=== PATIENT | female | born 1950 | race Hispanic/Latino ===

== ENCOUNTER 2018-01-26 07:37 | Observation (INO) | payer MEDICARE ==
[2018-01-23 09:37] LABS: BASOPHILS % 0.5 % (0.0-1.0); EOSINOPHILS # (AUTO) 0.2 (0.0-0.4); EOSINOPHILS % 1.9 % (0.0-6.0); HEMATOCRIT 41.1 % (34.2-44.1); HEMOGLOBIN 13.6 g/dL (12.0-16.0); LYMPHOCYTES # (AUTO) 2.5 (1.0-3.2); LYMPHOCYTES % 28.6 % (18.0-39.1); MEAN CORPUSCULAR HEMOGLOBIN 33.3 pg (28-32); MEAN CORPUSCULAR HGB CONC 33.1 g/dL (31-35); MEAN CORPUSCULAR VOLUME 100.5 fL (81-99); MONOCYTES # (AUTO) 0.7 (0.2-0.8); MONOCYTES % 7.5 % (4.4-11.3); NEUTROPHILS # (AUTO) 5.3 (2.1-6.9); NEUTROPHILS % 61.2 % (38.7-80.0); PLATELET COUNT 274 x10e3/uL (140-360); RED BLOOD COUNT 4.09 x10e6/uL (3.6-5.1); RED CELL DISTRIBUTION WIDTH 12.3 % (11.7-14.4)
[2018-01-23 09:54] LABS: ANION GAP 14.9 mmol/L (8-16); BLOOD UREA NITROGEN 16 mg/dL (7-26); BUN/CREATININE RATIO 22 (6-25); CALCIUM 9.6 mg/dL (8.4-10.2); CARBON DIOXIDE 28 mmol/L (22-29); CHLORIDE 101 mmol/L (98-107); CREATININE, SERUM 0.72 mg/dL (0.57-1.11); EST GLOMERULAR FILTRATION RATE > 60 ML/MIN (60-); GLUCOSE 133 mg/dL (74-118); POTASSIUM 3.9 mmol/L (3.5-5.1); SODIUM 140 mmol/L (136-145)
--- NOTE | 2018-01-23 10:14 | Diagnostic Imaging Report ---
PROCEDURE:CHEST 2 VIEWS COMPARISON:None. INDICATIONS:PREOPERATIVE CHEST XRAY FOR LEFT KNEE SURGERY FINDINGS:The heart and lungs are normal. No infiltrates, nodules or pleural effusions. Focal eventration anteriorly of the right hemidiaphragm. Calcification within the aortic knob. Mild degenerative changes of the spine. Compression deformity of the L1 vertebral body. CONCLUSION:No acute abnormality. Tello Tim D.O. Dictated by: Tello Tim D.O. on 01/23/2018 at 10:20 Electronically approved by: Tello Tim D.O. on 01/23/2018 at 10:20
[~2018-01-26 07:37] MED LIST: AMLODIPINE BESYL5 MG PO; ATORVASTATIN CA20 MG PO; ESCITALOPRAM OX10 MG PO; LEVOTHYROXINE75 MCG PO; LOSARTAN-HCTZ1 EAC2 PO; METFORMIN HCL500 MG PO; NAPROXEN250 MG PO; QUETIAPINE FUMA25 MG PO; ROPIVACAINE 246.25 MG, EPINEPHRINE HCL 1:1000 0.5 MG, CLONIDINE HCL 0.08 MG, KETOROLAC ... INJ ONE
[2018-01-26] MEDS ORDERED: DEXAMETHASONE SOD PHOS 10 MG/1 ML VIAL ONE (08:00)
[2018-01-26] MEDS ORDERED: GABAPENTIN 300 MG CAP ONE (08:00)
[2018-01-26] MEDS ORDERED: CEFAZOLIN SOD 2 GM/D5W 50ML 50 ML IV ONE (08:00)
[2018-01-26] MEDS ORDERED: CELECOXIB 200 MG CAP ONE (08:36)
[2018-01-26] MEDS ORDERED: TRANEXAMIC ACID 1,000 MG/10 ML ML ONE (09:31)
[2018-01-26] MEDS ORDERED: BACITRACIN 50,000 UNIT VIAL ONE (09:31)
[2018-01-26] MEDS: SODIUM CHLORIDE 0.9% 1000ML 1,000 ML IV SCH ×2 (11:41→20:57)
[2018-01-26] MEDS ORDERED: ONDANSETRON HCL INJ 2 MG/ML VIAL IV PRN (11:45)
[2018-01-26] MEDS ORDERED: HYDROCODONE/APAP 5MG-325MG TAB PO PRN (11:45)
[2018-01-26] MEDS ORDERED: DOCUSATE SODIUM 100 MG CAP PO PRN (11:45)
[2018-01-26] MEDS ORDERED: PROMETHAZINE HCL (IM) 25 MG/ML VIAL IM PRN (11:45)
[2018-01-26] MEDS ORDERED: HYDROCODONE/APAP 7.5MG-325MG 1 EA TAB PO PRN (11:45)
[2018-01-26] MEDS ORDERED: DIPHENHYDRAMINE HCL INJ 50 MG/ML VIAL IM/IV PRN (11:45)
[2018-01-26] MEDS ORDERED: KETOROLAC TROMETHAMINE 30 MG/ML VIAL IV PRN (11:45)
[2018-01-26] MEDS ORDERED: ACETAMINOPHEN 650 MG SUPP PR PRN (11:45)
[2018-01-26] MEDS: ACETAMINOPHEN 1000 MG/100 ML IV SCH ×3 (12:00→23:59)
--- NOTE | 2018-01-26 12:35 | Diagnostic Imaging Report ---
PROCEDURE: X-RAY LEFT KNEE, ONE OR TWO VIEWS COMPARISON: None. INDICATIONS:POST-OP OF LEFT KNEE FINDINGS: See conclusion. CONCLUSION: Status post total left knee replacement with surrounding soft tissue swelling, air and rizwan consistent with recent surgery. No acute fractures. Dictated by: Scott Araujo M.D. on 01/26/2018 at 12:41 Electronically approved by: Scott Araujo M.D. on 01/26/2018 at 12:41
--- NOTE | 2018-01-26 12:44 | Operative Report ---
DATE OF PROCEDURE: January 26, 2018 WIRE WHEELER: Damian Marmolejo PA-C The patient was brought to the operating room for induction of anesthesia. Throughout this case, my PA's assistance was necessary for retraction of soft tissue and positioning of the extremity. This allows for efficient and technically successful execution of the operation and is considered medically necessary. PREOPERATIVE DIAGNOSIS: Osteoarthritis left knee. POSTOPERATIVE DIAGNOSIS: Osteoarthritis left knee. PROCEDURE: Left total knee arthroplasty *added complexity secondary to BMI of 42. INDICATIONS: The patient is a 67-year-old lady who has end-stage arthritis in her left knee. She has failed conservative management and wishes to proceed with a left total knee replacement. The risks and benefits of the procedure have been explained. The added risks due to her BMI of 42 have been explained. She states she understands and wishes to proceed. DESCRIPTION OF PROCEDURE: The patient was brought to the operating room and placed under general anesthetic. She received a regional block, prophylactic antibiotics and tranexamic acid in the holding area. Her left lower extremity was prepped and draped in a sterile manner. Added time and personnel were needed to accommodate her challenging size. The left lower extremity was prepped and draped in a sterile manner. A preoperative time out was performed. The extremity was exsanguinated, and a proximal tourniquet was inflated to 350 mmHg. An anterior approach with a medial parapatellar arthrotomy was performed. A slightly more extensile approach than typical was performed due to her size. Clear synovial fluid was removed from the joint. Soft-tissue releases were performed to bring the knee up into flexion with the patella everted. Meniscal remnants and marginal osteophytes were removed. The cruciate ligaments were sacrificed. A Andre and Nephew Lo II posterior stabilized knee system was used throughout the case. An extramedullary cutting guide was used to resect the proximal tibia. The tibial baseplate was a size number 3. The central fin punch was impacted, and attention was directed towards the distal femur. An intramedullary cutting guide was used to resect the distal femur in 6 degrees of valgus and rotation referencing off of a combination of landmarks including [place]'s line, the epicondylar axis and the posterior condyles. The femoral component was a size number 4. The anterior and posterior cuts were made. Trial reductions were performed. A 9 mm ultracongruent tibial insert provided optimal soft-tissue balancing in flexion and extension. The patella was then resurfaced with a 29 mm x 9 mm patellar button. The thickness was checked before and after resurfacing and was right at 21 mm. The patellar tracking was noted to be concentric. The trial implants were then all removed. A 100 mL premixed pericapsular injection was placed into the surrounding soft tissue. The knee was thoroughly irrigated with a shower-tip pulsatile lavage. The components were cemented into place using a single mix of Palacos cement pre-loaded with antibiotics. Care was taken to remove all extravasated cement. The wound was further irrigated with the pulsatile lavage while the cement cured. The arthrotomy was then closed with interrupted number 1 Ethibond. The knee was put through flexion and extension to ensure a secure closure. The skin was carefully closed with subcuticular Vicryl and rizwan. A sterile Aquacel bandage was applied. The patient was extubated and transported to the recovery room in stable condition. Blood loss was minimal. All needle and sponge counts were correct. Job#: [id number] ESME
[2018-01-26] MEDS ORDERED: CEFAZOLIN SOD 1 GM/D5W 50ML 50 ML IV SCH (14:00)
[2018-01-26 16:00] VITALS: BP 126/61
[2018-01-26 16:19] VITALS: BP 126/61
[2018-01-26] MEDS ORDERED: CELECOXIB 100 MG CAP PO SCH (17:00)
[2018-01-26] MEDS: CEFAZOLIN SOD 1 GM VIAL IV SCH (17:15)
[2018-01-26] MEDS: ASPIRIN 325 MG TAB PO SCH (17:15)
[2018-01-26] MEDS: CELECOXIB 200 MG CAP PO SCH (17:15)
[2018-01-26] MEDS ORDERED: SEVOFLURANE INHAL SOLN 250 ML PEN BTL ONE (17:33)
[2018-01-26] MEDS ORDERED: PROPOFOL IV EMULSION 10 MG/ML 20 ML VIAL ONE (17:33)
[2018-01-26] MEDS ORDERED: LIDOCAINE HCL 2% LOCAL INJ 5 ML SDV VIAL INJ ONE (17:33)
[2018-01-26] MEDS ORDERED: ONDANSETRON HCL INJ 2 MG/ML VIAL ONE (17:33)
[2018-01-26] MEDS ORDERED: DEXAMETHASONE SOD PHOS INJ 4 MG/ML VIAL ONE (17:33)
[2018-01-26] MEDS ORDERED: EPHEDRINE SULFATE INJ 50 MG/10 ML SYR ONE (17:33)
[2018-01-26] MEDS ORDERED: ROPIVACAINE 0.5% 5 MG/ML 30 ML SDV ONE (17:40)
[2018-01-26] MEDS ORDERED: LIDOCAINE 2%/ EPINEPHRINE 20ML MDV ONE (17:40)
[2018-01-26] MEDS ORDERED: MIDAZOLAM HCL 2 MG/2 ML VIAL ONE (17:42)
[2018-01-26] MEDS ORDERED: FENTANYL CITRATE/PF 100MCG/2 ML INJ ONE (17:42)
[2018-01-26] MEDS ORDERED: DEXTROSE 50% SYRINGE 50 ML IV PRN (18:00)
[2018-01-26] MEDS ORDERED: vascepa PO (18:12)
[2018-01-26 20:00] VITALS: BP 131/62
[2018-01-26] MEDS: INSULIN REGULAR, HUMAN 100 UNIT/1 ML 3ML VIAL SQ SCH (20:56)
[2018-01-26] MEDS ORDERED: ATORVASTATIN 40 MG TAB PO SCH (21:00)
[2018-01-26] MEDS ORDERED: ATORVASTATIN 20 MG TAB PO SCH (21:00)
[2018-01-26] MEDS ORDERED: ZOLPIDEM TARTRATE 5 MG TAB PO PRN (21:00)
[2018-01-26] MEDS ORDERED: QUETIAPINE FUMARATE 25 MG TAB PO SCH (21:00)
[2018-01-27 00:45] VITALS: BP 115/57
[2018-01-27] MEDS: CEFAZOLIN SOD 1 GM VIAL IV SCH ×2 (01:22→10:14)
[2018-01-27 04:00] VITALS: BP 126/59
[2018-01-27] MEDS: ACETAMINOPHEN 1000 MG/100 ML IV SCH (05:35)
[2018-01-27 05:36] LABS: HEMATOCRIT 34.6 % (34.2-44.1); HEMOGLOBIN 11.6 g/dL (12.0-16.0)
[2018-01-27] MEDS ORDERED: LEVOTHYROXINE SODIUM 75 MCG TAB PO SCH (06:00)
[2018-01-27] MEDS: INSULIN REGULAR, HUMAN 100 UNIT/1 ML 3ML VIAL SQ SCH ×3 (07:30→16:18)
[2018-01-27 07:39] VITALS: BP 125/61
[2018-01-27 08:00] VITALS: BP 125/61
[2018-01-27] MEDS: CELECOXIB 200 MG CAP PO SCH ×2 (08:00→17:36)
[2018-01-27] MEDS ORDERED: METFORMIN HCL 500 MG TAB PO SCH (08:00)
[2018-01-27] MEDS: SODIUM CHLORIDE 0.9% 1000ML 1,000 ML IV SCH (08:00)
[2018-01-27] MEDS: ASPIRIN 325 MG TAB PO SCH ×2 (08:00→17:36)
[2018-01-27] MEDS ORDERED: AMLODIPINE BESYLATE 5 MG TAB PO SCH (09:00)
[2018-01-27] MEDS ORDERED: ESCITALOPRAM OXALATE 10 MG TAB PO SCH (09:00)
[2018-01-27] MEDS ORDERED: ACETAMINOPHEN 1000 MG/100 ML IV PRN (11:45)
[2018-01-27 12:01] VITALS: BP 135/63
[2018-01-27] MEDS ORDERED: ASPIRIN325 MG PO (13:14)
[2018-01-27 16:00] VITALS: BP 142/64
== END 2018-01-27 17:50 | disposition home health service (06) ==
LOC: OR 07:37 → PACU V 11:30 → MED/SURG 15:18
PROVIDERS: ADMIT Specialist; ATTEND Specialist
DX: M17.12 Unilateral primary osteoarthritis, left knee (principal); Z68.41 Body mass index [BMI] 40.0-44.9, adult; I10 Essential (primary) hypertension; E03.9 Hypothyroidism, unspecified; E11.9 Type 2 diabetes mellitus without complications; E78.5 Hyperlipidemia, unspecified; F32.9 Major depressive disorder, single episode, unspecified; Z83.3 Family history of diabetes mellitus; Z82.49 Family history of ischemic heart disease and other diseases of the circulatory system; E66.01 Morbid (severe) obesity due to excess calories
CPT/HCPCS: 27447; 36415 ×3; 71046; 73560; 80048; 82948 ×2; 85014; 85018; 85025; 86850; 86900; 86920; 93005; 97116; 97161; 97530; G0378 ×2; G8978; G8979; J0171; J0690 ×2; J1100 ×2; J1885; J2001 ×2; J2250; J2405; J2795; J7030 ×2; C1713

== ENCOUNTER → 2018-04-08 | Outpatient (RCR) | payer MEDICARE ==
[~2018-04-08] MED LIST changes: +ASPIRIN325 MG PO; -ROPIVACAINE 246.25 MG, EPINEPHRINE HCL 1:1000 0.5 MG, CLONIDINE HCL 0.08 MG, KETOROLAC ... INJ ONE; +vascepa PO
== END ==
LOC: PT 03-11 08:09
PROVIDERS: ATTEND Specialist
DX: Z96.652 Presence of left artificial knee joint (principal); Z47.1 Aftercare following joint replacement surgery; M17.0 Bilateral primary osteoarthritis of knee
CPT/HCPCS: 97110 ×8; 97139; 97140 ×2; 97162; G8978 ×2; G8979 ×2

== ENCOUNTER → 2018-05-08 | Outpatient (RCR) | payer MEDICARE | LOC: PT 04-10 09:02 | PROVIDERS: ATTEND Specialist | DX: Z96.652 Presence of left artificial knee joint (principal); Z47.1 Aftercare following joint replacement surgery; M17.0 Bilateral primary osteoarthritis of knee; M25.662 Stiffness of left knee, not elsewhere classified; M62.81 Muscle weakness (generalized); R26.9 Unspecified abnormalities of gait and mobility | CPT/HCPCS: 97110 ×12; 97140; G8978; G8979 ==

== ENCOUNTER 2018-05-27 09:00 | Outpatient (RCR) | payer MEDICARE | END 2018-06-08 | LOC: PT 09:00 | PROVIDERS: ATTEND Specialist | DX: Z96.652 Presence of left artificial knee joint (principal); Z47.1 Aftercare following joint replacement surgery; M17.0 Bilateral primary osteoarthritis of knee; M25.662 Stiffness of left knee, not elsewhere classified; M62.81 Muscle weakness (generalized); R26.9 Unspecified abnormalities of gait and mobility | CPT/HCPCS: 97110 ×8; 97140 ×2; G8979; G8980 ==

== ENCOUNTER 2019-03-08 07:45 | Observation (INO) | payer MEDICARE ==
[2019-03-05 12:59] LABS: BASOPHILS % 0.4 % (0.0-1.0); EOSINOPHILS # (AUTO) 0.3 (0.0-0.4); EOSINOPHILS % 3.5 % (0.0-6.0); HEMATOCRIT 36.9 % (34.2-44.1); HEMOGLOBIN 12.6 g/dL (12.0-16.0); LYMPHOCYTES # (AUTO) 1.9 (1.0-3.2); LYMPHOCYTES % 24.5 % (18.0-39.1); MEAN CORPUSCULAR HEMOGLOBIN 33.2 pg (28-32); MEAN CORPUSCULAR HGB CONC 34.1 g/dL (31-35); MEAN CORPUSCULAR VOLUME 97.4 fL (81-99); MONOCYTES # (AUTO) 0.5 (0.2-0.8); MONOCYTES % 6.3 % (4.4-11.3); NEUTROPHILS # (AUTO) 5.1 (2.1-6.9); NEUTROPHILS % 64.9 % (38.7-80.0); PLATELET COUNT 289 x10e3/uL (140-360); RED BLOOD COUNT 3.79 x10e6/uL (3.6-5.1); RED CELL DISTRIBUTION WIDTH 13.1 % (11.7-14.4)
[2019-03-05 13:16] LABS: ANION GAP 11.6 mmol/L (8-16); BLOOD UREA NITROGEN 13 mg/dL (7-26); BUN/CREATININE RATIO 18 (6-25); CALCIUM 9.3 mg/dL (8.4-10.2); CARBON DIOXIDE 29 mmol/L (22-29); CHLORIDE 102 mmol/L (98-107); CREATININE, SERUM 0.74 mg/dL (0.57-1.11); EST GLOMERULAR FILTRATION RATE > 60 ML/MIN (60-); GLUCOSE 234 mg/dL (74-118); POTASSIUM 3.6 mmol/L (3.5-5.1); SODIUM 139 mmol/L (136-145)
--- NOTE | 2019-03-05 13:18 | Diagnostic Imaging Report ---
EXAMINATION: CHEST 2 VIEWS INDICATION: Preop for knee surgery ^PREOP ^[id number] ^[id number] COMPARISON: 01/23/2018 FINDINGS: TUBES and LINES: None. LUNGS: Lungs are well inflated. Lungs are clear. There is no evidence of pneumonia or pulmonary edema. PLEURA: No pleural effusion or pneumothorax. HEART AND MEDIASTINUM: The cardiomediastinal silhouette is unremarkable. BONES AND SOFT TISSUES: No acute osseous lesion. Soft tissues are unremarkable. UPPER ABDOMEN: No free air under the diaphragm. IMPRESSION: No acute thoracic abnormality. Signed by: Dr. Vince Marie M.D. on 03/05/2019 1:15 PM
[~2019-03-08] VITALS: Ht 165.1 cm; Wt 94.8 kg
[~2019-03-08 07:45] MED LIST changes: +BACITRACIN 50,000 UNIT VIAL ONE; +LOSARTAN POTAS100 MG PO; +ROPIVACAINE 246.25 MG, EPINEPHRINE HCL 1:1000 1ML 0.5 MG, CLONIDINE HCL 0.08 MG, KETORO... INJ ONE; +SODIUM CHLORIDE 0.9% 500ML 500 ML ONE; +TRANEXAMIC ACID 1,000 MG/10 ML ML ONE; +VANCOMYCIN HCL 1,000 MG ONE
[2019-03-08] MEDS ORDERED: CELECOXIB 200 MG CAP ONE (07:58)
[2019-03-08] MEDS ORDERED: GABAPENTIN 300 MG CAP ONE (07:58)
[2019-03-08] MEDS ORDERED: DEXAMETHASONE SOD PHOS 10 MG/1 ML VIAL ONE (07:58)
[2019-03-08] MEDS ORDERED: CEFAZOLIN SOD 1 GM/NS 50ML 100 ML IV ONE (07:59)
[2019-03-08] MEDS ORDERED: HYDROCODONE/APAP 7.5MG-325MG 1 EA TAB PO PRN (10:45)
[2019-03-08] MEDS ORDERED: KETOROLAC TROMETHAMINE 30 MG/ML VIAL IV PRN (10:45)
[2019-03-08] MEDS ORDERED: DOCUSATE SODIUM 100 MG CAP PO PRN (10:45)
[2019-03-08] MEDS ORDERED: ONDANSETRON HCL INJ 2MG/ML 2ML 2 MG/ML VIAL IV PRN (10:45)
[2019-03-08] MEDS ORDERED: ZOLPIDEM TARTRATE 5 MG TAB PO PRN (10:45)
[2019-03-08] MEDS ORDERED: PROMETHAZINE HCL (IM) 25 MG/ML VIAL INJ PRN (10:45)
[2019-03-08] MEDS ORDERED: ACETAMINOPHEN 650 MG SUPP PR PRN (10:45)
[2019-03-08] MEDS ORDERED: DIPHENHYDRAMINE HCL INJ 50 MG/ML VIAL IM/IV PRN (10:45)
[2019-03-08] MEDS ORDERED: HYDROCODONE/APAP 5MG-325MG TAB PO PRN (10:45)
--- NOTE | 2019-03-08 11:33 | Diagnostic Imaging Report ---
EXAMINATION: KNEE RIGHT 1-2 VIEWS INDICATION: Postoperative COMPARISON: None FINDINGS: Portable AP and crosstable lateral radiographs of the right knee demonstrate postoperative changes of right total knee replacement. Alignment is anatomic. No unexpected fracture. Postoperative subcutaneous emphysema. Surgical skin rizwan in place. Small joint effusion. IMPRESSION: Anatomic alignment status post right total knee replacement. Signed by: Sara Copeland MD on 03/08/2019 11:29 AM
--- NOTE | 2019-03-08 11:39 | NUR ---
RECEIVED REPORT FROM [facility] IN PACU AWAITING FOR PT TO ARRIVE TO FLOOR
[2019-03-08 11:42] VITALS: BP 146/70
--- NOTE | 2019-03-08 11:42 | NUR ---
RECEIVED PT TO FLOOR [id number], ABLE TO ANSWER ALL QUESTIONS BUT VERY DROWSY FROM ANESTHESIA AROUSALS WITH VERBAL STIMULI PT DENIES ANY PAIN. PT IS ON 3L O2 SATING 95% PT RIGHT YOGESH WRAP IS DRY AND INTACT WITH ICE PACK ON TOP OF RIGHT KNEE FOR COMFORT LEFT LEG JOSE A AND BILATERAL FOOT PUMPS PRESENT WILL CONTINUE TO MONITOR PT CLOSELY, SIDE RAILSX2, BED WHEELS LOCKED, CALL LIGHT IS WITHIN EASY REACH, INSTRUCTED TO CALL FOR ASSISTANCE IF NEEDED
[2019-03-08] MEDS: ACETAMINOPHEN 1000 MG/100 ML IV SCH ×2 (12:00→19:00)
[2019-03-08 12:20] VITALS: BP 146/70
[2019-03-08] MEDS: VASCEPA 1 GM PO SCH (12:30)
[2019-03-08] MEDS ORDERED: DEXTROSE 50% SYRINGE 50 ML IV PRN (12:30)
[2019-03-08] MEDS: INSULIN LISPRO 100 UNIT/1 ML 3ML VIAL SQ SCH ×3 (12:40→21:40)
[2019-03-08] MEDS ORDERED: CEFAZOLIN SOD 1 GM/NS 50ML 50 ML IV SCH (14:00)
[2019-03-08] MEDS ORDERED: ROPIVACAINE 0.5% 5 MG/ML 30 ML SDV ONE (14:25)
[2019-03-08] MEDS: SODIUM CHLORIDE 0.9% 1000ML 1,000 ML IV SCH ×2 (14:38→23:30)
--- NOTE | 2019-03-08 14:48 | Operative Report ---
DATE OF PROCEDURE: 03/08/2019 SURGEON: Julian Cotto MD NUCLEAR EQUIPMENT DESIGN ENGINEER: Damian Marmolejo, certified PA. PREOPERATIVE DIAGNOSIS: Osteoarthritis, right knee. POSTOPERATIVE DIAGNOSIS: Osteoarthritis, right knee. PROCEDURE: Right total knee arthroplasty, * added complexity secondary to BMI over 41. INDICATION: The patient is a 68-year-old lady, who has end-stage osteoarthritis of her right knee. She has failed conservative management and would like to proceed with a right total knee replacement. The risks and benefits have been discussed. The added challenges and potential for perioperative complications due to her body mass index have been discussed. She has been through a left total knee replacement and is familiar with these concerns. She states she understands and wishes to proceed. PROCEDURE IN DETAIL: The patient was brought to the operating room and placed under general anesthetic. She received prophylactic antibiotics, a regional block and tranexamic acid in the holding area. Her right lower extremity was prepped and draped in a sterile manner. A preoperative time-out was performed. The extremity was exsanguinated and a proximal tourniquet was inflated to 300 mmHg. An anterior incision with a medial parapatellar arthrotomy was performed. Efforts were made to limit dissection to diminish space potential. Abundant subcutaneous adipose tissue was encountered. Added time and challenges were encountered due to the patient's altered surgical field. Soft tissue releases were performed to accommodate for the varus deformity and to allow the knee to be flexed with the patella everted. Meniscal remnants and marginal osteophytes were removed. The cruciate ligaments were sacrificed. A Andre and NephAdility Knee System was used throughout the case. Initial attention was directed towards the proximal tibia. An extramedullary cutting guide was used to resect the proximal tibia. The cut was referenced off at least the affected lateral compartment. The posterior slope was dialed in to match the existing slope. The tibial base plate was a size #3. The central fin punch was impacted and attention was directed towards the distal femur. An intramedullary cutting guide was used to resect the distal femur in 5 degrees of valgus and rotation referencing off a combination of landmarks including [place] line, the epicondylar axis and the posterior condyles. The femoral component was a size #4. The anterior and posterior cuts were made. An 11 mm ultracongruent tibial insert provided appropriate soft tissue balancing in full extension and 90 degrees of flexion. The patella was resurfaced with a 29 mm x 7.5 mm patellar button. The thickness was checked before and after, and was right around 20 mm. Patellar tracking was noted to be concentric. The trial implants were removed. A 100 mL premixed pericapsular GEORGINA injection was placed into the surrounding soft tissue. The knee was thoroughly irrigated with a shower tip pulsatile lavage. All bone cuts had been irrigated with mixture of diluted polymyxin and vancomycin spray. The components were cemented into place using a single mix of Palacos cement preloaded with antibiotics. Care was taken to remove extravasated cement. The wounds were further irrigated while the cement cured. The wound was then closed over 500 mg of vancomycin powder that was sprinkled into the joint. The arthrotomy was closed with interrupted #1 Ethibond stitches. The knee was put through flexion and extension to ensure a secure closure. The skin was closed with subcuticular Vicryl and rizwan. A sterile bandage was applied. She was extubated and transported to the recovery room in stable condition. Blood loss was minimal. All needle and sponge counts were correct. Julian Cotto MD DR/SILVIO /[id number]
[2019-03-08 16:20] VITALS: BP 110/66
--- NOTE | 2019-03-08 16:29 | NUR ---
PT VOIDED POST SX INTO BEDSIDE COMMODE
[2019-03-08] MEDS ORDERED: CELECOXIB 100 MG CAP PO SCH (17:00)
[2019-03-08] MEDS: CELECOXIB 200 MG CAP PO SCH (17:19)
[2019-03-08] MEDS: CEFAZOLIN SOD 1 GM/NS 50ML 50 ML IV SCH ×2 (17:19→21:40)
[2019-03-08] MEDS: ASPIRIN 325 MG TAB PO SCH (17:19)
[2019-03-08] MEDS ORDERED: MIDAZOLAM HCL 2 MG/2 ML VIAL ONE (18:09)
[2019-03-08] MEDS ORDERED: FENTANYL CITRATE/PF 100MCG/2 ML INJ ONE (18:09)
--- NOTE | 2019-03-08 19:00 | NUR ---
RECEIVED PT RESTING IN BED WITH NO S/S OF DISTRESS.RESPIRATIONS EVEN/NON LABORED.PT PUT ON CPM MACHINE AT THIS TIME.FAMILY MEMBERS AT BEDSIDE.BED IN LOWEST/LOCKED POSITION.INSTRUCTED PT/FAMILY TO CALL FOR ASSISTANCE NEEDED BY PRESSING CALL LIGHT.CALL LIGHT WITHIN EASY REACH.
[2019-03-08 20:00] VITALS: BP 119/58
[2019-03-08 21:00] VITALS: BP 119/58
[2019-03-08] MEDS ORDERED: QUETIAPINE FUMARATE 25 MG TAB PO SCH (21:00)
[2019-03-08] MEDS ORDERED: ATORVASTATIN 40 MG TAB PO SCH (21:00)
[2019-03-08] MEDS ORDERED: ATORVASTATIN 20 MG TAB PO SCH (21:00)
[2019-03-09] VITALS: BP 121/59
[2019-03-09] MEDS: ACETAMINOPHEN 1000 MG/100 ML IV SCH ×2 (00:24→06:20)
[2019-03-09] MEDS: VASCEPA 1 GM PO SCH ×2 (00:30→12:30)
[2019-03-09 04:00] VITALS: BP 107/51
[2019-03-09] MEDS: CEFAZOLIN SOD 1 GM/NS 50ML 50 ML IV SCH (05:40)
[2019-03-09 05:42] LABS: HEMATOCRIT 33.4 % (34.2-44.1); HEMOGLOBIN 10.9 g/dL (12.0-16.0)
[2019-03-09] MEDS ORDERED: LEVOTHYROXINE SODIUM 100 MCG TAB PO SCH (06:00)
--- NOTE | 2019-03-09 06:30 | NUR ---
PT RESTING IN BED WITH NO S/S OF DISTRESS.PT PUT ON CPM MACHINE AT THIS TIME.BED IN LOWEST/LOCKED POSITION.CALL LIGHT WITHIN EASY REACH.
--- NOTE | 2019-03-09 06:58 | NUR ---
REPORT GIVEN TO ONCOMING NURSE.WALKING ROUNDS MADE.PT RESTING IN BED WITH NO S/S OF DISTRESS.
[2019-03-09 08:18] VITALS: BP 132/62
[2019-03-09 08:21] VITALS: BP 132/62
[2019-03-09] MEDS: INSULIN LISPRO 100 UNIT/1 ML 3ML VIAL SQ SCH ×2 (08:21→12:48)
[2019-03-09] MEDS: ASPIRIN 325 MG TAB PO SCH (08:21)
[2019-03-09] MEDS: CELECOXIB 200 MG CAP PO SCH (08:21)
[2019-03-09] MEDS ORDERED: ESCITALOPRAM OXALATE 10 MG TAB PO SCH (09:00)
[2019-03-09] MEDS ORDERED: AMLODIPINE BESYLATE 5 MG TAB PO SCH (09:00)
[2019-03-09] MEDS ORDERED: LEVOTHYROXINE SODIUM 75 MCG TAB PO SCH (09:00)
[2019-03-09] MEDS ORDERED: LOSARTAN POTASSIUM 100 MG TAB PO SCH (09:00)
[2019-03-09] MEDS ORDERED: METFORMIN HCL 850 MG TAB PO SCH (09:00)
[2019-03-09] MEDS ORDERED: METFORMIN HCL 500 MG TAB PO SCH (09:00)
--- NOTE | 2019-03-09 09:11 | NUR ---
DR MCGARRY OFFICE PREARRANGED FOLLOWING DISCHARGE PLAN OF: GOING HOME TO ADDRESS PROVIDED [address], [facility] [address] CONFIRMED WITH FAMILY AND PT AND BOTH COMPANIES HOME HEALTH WITH [facility] CONFIRMED WITH SKIP [phone] DME 3 IN ONE COMMODE. AND CPM. PROVIDED BY [employer] [phone] DARREN FAXED UPDATED ORDER AND FACESHEET.
--- NOTE | 2019-03-09 09:14 | NUR ---
UNIQUE ARMANDO OBTAINED SIGNATURES AND FILED IN PACU
[2019-03-09] MEDS ORDERED: INSULIN GLARGINE 100 UNITS/ML VIAL SQ ONE (09:30)
[2019-03-09] MEDS ORDERED: ACETAMINOPHEN 1000 MG/100 ML IV PRN (10:45)
[2019-03-09] MEDS ORDERED: ONDANSETRON HCL 4 MG ORAL DISINTEGRATING TAB PO PRN (11:00)
[2019-03-09 12:31] VITALS: BP 125/62
[2019-03-09] MEDS ORDERED: GLUCOTROL XL5 MG PO ×2 (14:04→14:18)
[2019-03-09] MEDS ORDERED: SENNA LAX8.6 MG PO (14:05)
[2019-03-09] MEDS ORDERED: TYLENOL WITH C1 EACH PO ×2 (14:05→14:18)
[2019-03-09] MEDS ORDERED: SENNA LAXATIVE8.6 MG PO (14:18)
--- NOTE | 2019-03-09 14:46 | NUR ---
DISCHARGE INSTRUCTIONS AND PRESCRIPTIONS GIVEN PT VERBALIZED UNDERSTANDING IV DC PRESSURE DRESSING APPLIED AND TAPED PT IS OFF UNIT TO HOME AT THIS TIME
== END 2019-03-09 14:46 | disposition home or self-care (01) ==
LOC: OR 07:45 → PACU V 10:45 → MED/SURG 11:46
PROVIDERS: ADMIT Specialist; ATTEND Specialist
DX: M17.0 Bilateral primary osteoarthritis of knee (principal); E66.9 Obesity, unspecified; Z68.34 Body mass index [BMI] 34.0-34.9, adult; E11.9 Type 2 diabetes mellitus without complications; I10 Essential (primary) hypertension; Z79.4 Long term (current) use of insulin
CPT/HCPCS: 27447; 36415 ×3; 71046; 73560; 80048; 82948 ×2; 85014; 85018; 85025; 86850; 86900; 86920; 97116; 97139 ×2; 97161; 97530; C1713 ×3; G0378 ×2; J0131 ×2; J0171; J0690 ×2; J1100; J1885; J2250; J2795; J3010; J3370; J7040

== ENCOUNTER 2019-05-07 08:51 | Outpatient (RCR) | payer MEDICARE ==
[~2019-05-07 08:51] MED LIST changes: -BACITRACIN 50,000 UNIT VIAL ONE; +GLUCOTROL XL5 MG PO; -ROPIVACAINE 246.25 MG, EPINEPHRINE HCL 1:1000 1ML 0.5 MG, CLONIDINE HCL 0.08 MG, KETORO... INJ ONE; +SENNA LAX8.6 MG PO; +SENNA LAXATIVE8.6 MG PO; -SODIUM CHLORIDE 0.9% 500ML 500 ML ONE; -TRANEXAMIC ACID 1,000 MG/10 ML ML ONE; +TYLENOL WITH C1 EACH PO; -VANCOMYCIN HCL 1,000 MG ONE
== END 2019-05-08 ==
LOC: PT 08:51
PROVIDERS: ATTEND Specialist
DX: Z96.651 Presence of right artificial knee joint (principal); Z47.1 Aftercare following joint replacement surgery